=== PATIENT | female | born 1950 | race Caucasian/White ===

== ENCOUNTER 2016-10-27 06:15 | Day surgery (SDC) | payer OTHER ==
[2016-10-26 12:06] VITALS: Ht 154.9 cm; Wt 67.3 kg
[~2016-10-27] VITALS: Ht 154.9 cm; Wt 67.3 kg
[2016-10-27] VITALS (8 sets, daily range): BP systolic 115–133; BP diastolic 56–86; PULSE 57–72; RESP 16–18
[~2016-10-27 06:15] MED LIST: DIAZEPAM 5 MG TAB PO SCH; DIPHENHYDRAMINE 50 MG CAP PO SCH; FAMOTIDINE 20 MG TAB PO SCH; SOD CHLORIDE 0.45% 1,000 ML IV SCH
[2016-10-27] MEDS ORDERED: ASPI-664 PO (07:35)
[2016-10-27] MEDS ORDERED: METO-448 PO (07:36)
[2016-10-27] MEDS ORDERED: BIOT1CAP3 PO (07:36)
[2016-10-27] MEDS ORDERED: MULTI PO (07:37)
[2016-10-27] MEDS ORDERED: SIMV20TA PO (07:37)
[2016-10-27] MEDS ORDERED: CALC-147 PO (07:38)
[2016-10-27 08:17] LABS: BASOPHIL # 0.1 10^3/ul (0.0-0.1); BASOPHILS % 0.7 % (0.0-2.0); HEMATOCRIT 39.9 % (37.0-47.0); HEMOGLOBIN 13.1 g/dl (12.0-16.0); LYMPHOCYTES # 2.4 10^3/ul (0.8-2.9); LYMPHOCYTES % 32.1 % (15.0-51.0); MEAN CORPUSCULAR HEMOGLOBIN 29.6 pg (29.0-33.0); MEAN CORPUSCULAR HGB CONC 32.8 g/dl (32.0-37.0); MEAN CORPUSCULAR VOLUME 90.1 fl (82.0-101.0); MEAN PLATELET VOLUME 10.9 fl (7.4-10.4); MONOCYTE # 0.5 10^3/ul (0.3-0.9); MONOCYTES % 6.6 % (0.0-11.0); NEUTROPHIL # 4.6 10^3/ul (1.6-7.5); NEUTROPHILS % 60.5 % (39.0-77.0); PLATELET COUNT 217 10^3/UL (140-415); RED BLOOD COUNT 4.43 10^6/ul (4.20-5.40); RED CELL DISTRIBUTION WIDTH 12.8 % (11.5-14.5); WHITE BLOOD COUNT 7.5 10^3/ul (4.8-10.8)
--- NOTE | 2016-10-27 08:21 | RADRPT ---
PROCEDURE: XR Chest. CLINICAL INDICATION: Chest pain . TECHNIQUE: Single frontal chest x-ray. COMPARISON: None. FINDINGS: The lungs are clear of acute infiltrates, edema, effusions, or masses. There are low lung volumes wi th right basilar atelectasis. Mild cardiomegaly is seen.. The osseous structures are intact. IMPRESSION: No acute cardiopulmonary disease. Low lung volumes with right basilar atelectasis. Mild cardiomegaly. RPTAT: GG .Aiden Solano MD, Date Time Electronically viewed and signed by .Aiden Solano MD, MD on 10/27/2016 08:21 .L/
[2016-10-27] MEDS ORDERED: FENTAnyl 50 MCG/ML VIAL ONE (08:23)
[2016-10-27] MEDS ORDERED: LIDOCAINE 1% (MDV) 20 ML INJ ONE ×2 (08:23→10:31)
[2016-10-27] MEDS ORDERED: IODIXANOL LOCM 100 ML BTL ONE ×2 (08:23→10:31)
[2016-10-27] MEDS ORDERED: NITROGLYCERIN (IC) 100 MCG/ML INJ ONE (08:23)
[2016-10-27] MEDS ORDERED: HEPARIN 1000 UNITS/ML 10 ML INJ ONE (08:23)
[2016-10-27] MEDS ORDERED: HEPARIN 1000 UNITS/NS (A-LINE) 1,000 ML ONE (08:23)
[2016-10-27] MEDS ORDERED: MIDAZOLAM 1 MG/ML 2 ML INJ ONE (08:23)
[2016-10-27] MEDS ORDERED: VERAPAMIL 5 MG INJ ONE (08:23)
[2016-10-27 08:31] LABS: INR 0.95; PARTIAL THROMBOPLASTIN TIME 28.7 Sec (25.0-35.0); PROTIME 12.7 Sec (12.2-14.2)
[2016-10-27 08:33] LABS: CHOL/HDL RATIO 4.5 RATIO
[2016-10-27 08:36] LABS: CALCIUM 9.9 mg/dl (8.4-10.2); CREATININE 0.82 mg/dl (0.44-1.00); POTASSIUM 4.1 mmol/L (3.5-5.1)
[2016-10-27] MEDS ORDERED: SOD CHLORIDE 0.9% 1,000 ML IV SCH (10:37)
--- NOTE | 2016-10-27 10:45 | SIPON ---
Date/Time of Note Date/Time of Note DATE: 10/27/16 TIME: 10:43 Operative Report Preoperative Diagnosis 1. abnl MPI 2.CHest pain Postoperative Diagnosis 1. NOn-obstructive cad Operation/Procedure Performed 1.LHC 2.Femoral angio 3.moderate concious sedation Surgeon: MARK COAETS Anesthesia Type: general Estimated Blood Loss: minimal Transfusion Required: no Specimen: none Grafts/Implants: none Complications: no MARK COATES Oct 27, 2016 10:45
[2016-10-27] MEDS ORDERED: AL HYDROX/MG HYDROX/SIMETH 30 ML CUP PO PRN (11:00)
[2016-10-27] MEDS ORDERED: ONDANSETRON 4 MG INJ IV PRN (11:00)
[2016-10-27] MEDS ORDERED: morphine 2 MG INJ IV PRN (11:00)
[2016-10-27] MEDS ORDERED: ACETAMINOPHEN 325 MG TAB PO PRN (11:00)
--- NOTE | 2016-10-27 11:14 | RADRPT ---
Vent Rate: 57 bpm RR Interval: 0 msec AL Interval: 166 msec QRS Duration: 90 msec QT Interval: 436 msec QTC Interval: 424 msec P-R-T [place]: 35 - -13 - -16 degrees Sinus bradycardia Anterior infarct , age undetermined Abnormal ECG Electronically Signed By: Fernando Donaldson [id number]
--- NOTE | 2016-10-27 12:49 | CARRPT ---
DATE OF PROCEDURE: 10/27/2013 TYPE OF PROCEDURE: 1. Left heart catheterization. 2. Coronary angiography. 3. Measurement of left ventricular end-diastolic pressure. 4. Moderate conscious sedation. ATTENDING PHYSICIAN: Dr. Mayur Wiseman. INDICATION: Chest pain refractory to medical therapy with positive stress test findings for inferior ischemia. BRIEF HISTORY: Ms. Ramirez is a 66-year-old female with history of hypertension, who initially presented with complaints of chest pain, underwent cardiac stress test revealing inferior ischemia. Patient presents in the setting of medical therapy, continued to have chest pain. The patient, therefore, referred for left heart catheterization to assess for the possibility of significant coronary artery disease, symptoms of chest pain and subsequent positive stress test findings. PROCEDURE: After informed consent was obtained today at the [facility] [employer], where her right and left radial artery areas were prepped and draped in sterile fashion and we infiltrated lidocaine through the right radial artery and attempted to gain access to be able to get easy flush back and return of blood, otherwise having to pass a wire. Subsequently, we changed to the left radial area and had the same difficulty, had easy return of blood, but were not able to pass a wire past the forearm. Subsequently, at this time, we moved to the right femoral artery where we were able to gain access and a 6-Slovak arterial sheath was placed using the modified Seldinger technique. A JL4 catheter was used to cath the left main coronary ostium. With contrast injection, multiple views of the left coronary artery system were obtained. JR4 was removed over a guidewire and a JR4 was used to cath the right coronary arterial ostium. With contrast injection, multiple views of the right coronary artery system were obtained. JR4 was then used to cross the aortic valve. Left ventricular end-diastolic pressure was measured and pullback across the aortic valve to assess for significant gradient, which there was not, and removed. Subsequently, at this time, a femoral angiogram was undertaken, revealing the patient's CT placed just in the proximal portion of the profunda femoral artery from a high bifurcation and the patient subsequently had the sheath removed. Manual pressure was applied until hemostasis was achieved. This completed procedure. There were no complications. FINDINGS: 1. Coronary angiography: Left main: 3.5 mm. No significant stenoses. The LAD proximally is a 3.5 mm vessel and has significant focal stenosis in its portion. The midportion has mild 20 percent stenosis where it becomes very torturous and it is a 2 mm vessel. There are 2 branching diagonals proximal with no significant focal stenoses. The circumflex proximally is a 3 mm vessel, has no focal stenosis throughout its entirety. It is a dominant vessel and gives off a left-sided PDA and posterolateral branch, each with no significant focal stenoses. The right coronary artery is a small nondominant vessel with no significant obstructions. 2. Measurement of left ventricular end-diastolic pressure of 12- 14. No significant aortic stenosis by gradient. 3. No LV-gram undertaken. TOTAL CONTRAST: 50 cc. TOTAL FLUOROSCOPY TIME: 25 minutes. IMPRESSION: 1. Essentially normal coronary arteries with very mild nonobstructive coronary artery disease. 2. Normal left heart filling pressures. 3. No severe aortic stenosis by gradient. 4. Possible hypertensive vascular disease with significant tortuosity of the vessels. RECOMMENDATIONS: 1. In light of procedure findings at time this, would maximize medical management. 2. Aggressive risk factor reduction. 3. Patient will be read[facility] for post catheterization observation with probable discharge later this afternoon. 4. Patient is scheduled for a followup appointment in office to take place Monday, the , at 3:40 p.m. at which time we will ensure she has had no post groin cath complications and discuss results of procedure with the patient further. Dictated By: Mayur Wiseman MD /umair/blair /Document#: [id number] CC: Kevin Sosa MD;*[facility]* [facility]
== END 2016-10-27 17:39 | disposition home or self-care (01) ==
LOC: SDS 06:15
PROVIDERS: ATTEND Internal Medicine
DX: I25.10 Atherosclerotic heart disease of native coronary artery without angina pectoris (principal)
CPT/HCPCS: 71010; 80048; 80061; 85025; 85610; 85730; 93005; 93458; C1887; C1894; J1644; J2250; J3010; Q9967; Z7610

== ENCOUNTER 2017-01-11 10:15 | Day surgery (SDC) | payer OTHER ==
[~2017-01-11] VITALS: Ht 152.4 cm; Wt 68.5 kg
[~2017-01-11 10:15] MED LIST changes: +ASPI-664 PO; +BIOT1CAP3 PO; +CALC-147 PO; -DIAZEPAM 5 MG TAB PO SCH; -DIPHENHYDRAMINE 50 MG CAP PO SCH; -FAMOTIDINE 20 MG TAB PO SCH; +METO-448 PO; +MULTI PO; +SIMV20TA PO; -SOD CHLORIDE 0.45% 1,000 ML IV SCH
[2017-01-11 10:45] VITALS: Ht 152.4 cm; Wt 68.5 kg
[2017-01-11 11:56] VITALS: BP 115/58; PULSE 56; RESP 20
--- NOTE | 2017-01-11 12:48 | OPPN ---
Date/Time of Note Date/Time of Note DATE: 01/11/17 TIME: 12:47 Operative Report Preoperative Diagnosis Positive occult blood in stool Postoperative Diagnosis Small sigmoid colon polyp was removed Diverticulosis of the colon Internal hemorrhoids Operation/Procedure Performed Colonoscopy and biopsy Surgeon see signature line fiscal assistant None Anesthesia: moderate sedation Estimated blood loss: none Transfusion Required none Specimen Sigmoid polyp biopsy Grafts/Implants none Complications none TASHA NEVES MD Jan 11, 2017 12:48
[2017-01-11 13:11] VITALS: BP 123/56; PULSE 58; RESP 15
--- NOTE | 2017-01-11 13:13 | GILP ---
DATE OF PROCEDURE: NAME OF PROCEDURES: Colonoscopy and biopsy. SURGEON: Tasha Jay MD PREOPERATIVE DIAGNOSIS: Positive occult blood in stool. POSTOPERATIVE DIAGNOSES 1. Colonoscopy all the way to the cecum. 2. Small sigmoid colon polyp was removed using the biopsy forceps. 3. Diverticulosis of the colon. 4. Internal hemorrhoids. INDICATION FOR THE PROCEDURE: Ms. Geovanna Ramirez is a 66-year-old female patient who was noted to hav e positive occult blood in stool. The patient was scheduled for colonoscopy for further evaluation. The procedure and possible complications are well explained to the patient, she understood and conse nted to the procedure. DESCRIPTION OF PROCEDURE: Under the influence of fentanyl and Versed, the colonoscope was carefully introduced in the rectum and under direct vision it was advanced all the way to the cecum. FINDINGS: The patient had a sigmoid colon polyp and it was removed using the biopsy forceps. She w as noted to have diverticulosis of the colon and internal hemorrhoids. She tolerated the procedure very well and there was no complication from the procedure. At the end of the procedure, she was awake with stable vital signs and she was discharged home to the care of h er family. IMPRESSION: Please see postoperative diagnoses. PLAN: 1. High fiber diet. 2. Next screening colonoscopy in 10 years. Dictated By: TASHA RAMIREZ/CANDELARIO Conf#: [id number] DID#: [id number]
[2017-01-11] MEDS ORDERED: MIDAZOLAM 1 MG/ML 2 ML INJ ONE ×2 (13:47)
[2017-01-11] MEDS ORDERED: FENTAnyl 50 MCG/ML VIAL ONE (13:47)
== END 2017-01-11 16:15 | disposition home or self-care (01) ==
LOC: GIL 10:15
PROVIDERS: ATTEND Internal Medicine Gastroenterology
DX: K92.1 Melena (principal); D12.5 Benign neoplasm of sigmoid colon; K57.90 Diverticulosis of intestine, part unspecified, without perforation or abscess without bleeding; K64.8 Other hemorrhoids; I10 Essential (primary) hypertension
CPT/HCPCS: 45380; 88305; J2250; J3010; Z7610

== ENCOUNTER 2017-04-03 05:50 | Day surgery (SDC) | END 2017-04-03 09:20 | disposition home or self-care (01) ==

== ENCOUNTER 2017-06-17 10:56 | Emergency (ER) | END 2017-06-17 13:28 | disposition home or self-care (01) ==